=== PATIENT | female | born 1950 | race Caucasian/White ===

== ENCOUNTER 2020-06-06 11:15 | Emergency (ER) | payer MEDICARE, OTHER, SELFPAY ==
[2020-06-06 11:25] VITALS: BP 142/92; PULSE 109; RESP 22; TEMP 36.4; O2SAT 100
[2020-06-06 11:29] VITALS: PULSE 109
--- NOTE | 2020-06-06 11:31 | ECG_ITS ---
Measurements Intervals [place] Rate: 108 P: 21 RI: 154 QRS: 12 QRSD: 81 T: 55 QT: 344 QTc: 463 Interpretive Statements SINUS TACHYCARDIA MINIMAL Q WAVES- INFERIOR LEADS NONSPECIFIC ST & T-WAVE ABNORMALITY- HIGH LATERAL LEADS BASELINE WANDER- I, II, III, V4-V5 ABNORMAL ECG Electronically Signed On 06-06-2020 15:54:04 CDT by Linden Cheung D.O.
--- NOTE | 2020-06-06 11:33 | ED.CHESTPAIN ---
HPI - Chest Pain General Chief Complaint: Chest Pain Stated Complaint: severe sob and cp Time Seen by Provider: 06/06/20 11:18 History of Present Illness HPI narrative: 70 yo female w/ h/o CHF, aortic stenosis presents for CP. Chest pain and SOB for the past 4 days. Worse this morning. SHarp. Worse with breathing. Associated with nonproductive cough and chills. SHe reports that she had similar symptoms in the past when she had pneumonia Related Data Home Medications Medication Instructions Recorded Confirmed Ozempic 06/06/20 insulin glargine [Lantus Solostar SUBCUT 06/06/20 06/06/20 U-100 Insulin] insulin lispro [Humalog KwikPen unit SUBCUT 06/06/20 Insulin] methotrexate sodium (PF) 06/06/20 metoprolol succinate PO 06/06/20 rosuvastatin mg 06/06/20 Allergies Allergy/AdvReac Type Severity Reaction Status Date / Time No Known Allergies Allergy Unverified 06/06/20 11:30 Review of Systems Review of Systems: All systems reviewed & are unremarkable except as noted in HPI and below Constitutional: Constitutional: Reports chills and Denies fever(s) Cardiovascular: Cardiovascular: Reports chest pain and Denies radiating jaw, neck or arm pain Respiratory: Respiratory: Reports cough and Reports dyspnea Gastrointestinal: Gastrointestinal: Reports nausea and Denies vomiting Neurologic: Reports dizziness and Reports weakness PMFSH Past Medical History Medical History (Updated 06/06/20 @ 12:39 by Austin Galvan MD) Aortic stenosis CHF exacerbation Social History Social History (Updated 06/06/20 @ 11:38 by Austin Galvan MD) Smoking status: Never smoker Living arrangements: with family Exam Const: General: no acute distress and alert Orientation/consciousness: patient oriented x3 HENMT: Head: normal to inspection Chest: Chest palpation & inspection: tenderness rib (left lower costal margin) Resp: Effort & Inspection: tachypneic Auscultation: clear to auscultation bilaterally Cardio: Rate: tachycardic Rhythm: regular rhythm GI: GI Palp: Yes Soft to palpation and No Tenderness to palpation present (GI) Skin: General skin exam: normal color Neuro: General: patient oriented x3, moves all extremities and no focal motor deficits Speech: normal speech Extrem: General: normal to inspection and no edema Psych: Affect: Anxious affect present Course Vital Signs Vital signs: Vital Signs Temperature 36.4 C 06/06/20 11:25 Pulse Rate 109 H 06/06/20 11:25 Respiratory Rate 22 H 06/06/20 11:25 Blood Pressure 142/92 H 06/06/20 11:25 Pulse Oximetry 100 06/06/20 11:25 Temperature 36.4 C 06/06/20 11:25 Pulse Rate 109 H 06/06/20 11:29 Respiratory Rate 22 H 06/06/20 11:25 Blood Pressure 142/92 H 06/06/20 11:25 Pulse Oximetry 100 06/06/20 11:25 MDM - Chest Pain MDM Narrative Medical decision making narrative: Labs largely reassuring. She does have mixed respiratory alkalosis and metabolic acidosis. The acidosis is mild. For the most part she seems to be hyperventilating. She is now refusinga chest x-ray and asking to signout AMA so that she can be go to [place]. Differential Diagnosis Differential diagnosis: Likely atypical chest pain, st elevation myocardial infarction and other (pneumonia, anxiety, dehydration) Medical Records Data Attestation: I reviewed the patient's medical records. Lab Data Attestation: I reviewed the patient's lab results. Result diagrams: 06/06/20 11:35 06/06/20 11:35 Labs: Lab Results 06/06/20 06/06/20 06/06/20 Range/Units 11:35 11:35 11:35 WBC 4.3 L (4.5-10.0) K/mm3 RBC 4.66 (4.2-5.4) M/mm3 Hgb 14.4 (12.0-15.0) g/dL Hct 41.5 (37.0-47.0) % MCV 89.1 (80-100) fl MCH 30.9 (26-34) pg MCHC 34.7 (32-36) g/dl RDW 14.6 H (11.5-14.5) % Plt Count 197 (150-375) k/mm3 MPV 10.2 (7.4-10.4) fl Immature Gran % (Auto) 0.5 (0-0.5) % Neut % (A
[2020-06-06 11:42] LABS: Basophils Percent Auto 0.2 % (0.2-1.2); Hematocrit 41.5 % (37.0-47.0); Hemoglobin 14.4 g/dL (12.0-15.0); Immature Granulocyte Absolute 0.02 K/mm3 (0.00-0.031); Immature Granulocyte Percent A 0.5 % (0-0.5); Lymphocytes Percent Auto 46.2 % (18.3-44.2); Mean Corpuscular HGB Conc 34.7 g/dl (32-36); Mean Corpuscular Hemoglobin 30.9 pg (26-34); Mean Corpuscular Volume 89.1 fl (80-100); Mean Platelet Volume 10.2 fl (7.4-10.4); Monocytes Absolute Auto 0.7 K/mm3 (0.1-0.6); Monocytes Percent Auto 16.4 % (2.6-8.5); Neutrophils Absolute Auto 1.6 K/mm3 (1.3-6.7); Neutrophils Percent Auto 36.7 % (45.5-73.1); Platelet Count Result 197 k/mm3 (150-375); Red Blood Count 4.66 M/mm3 (4.2-5.4); Red Cell Distribution Width 14.6 % (11.5-14.5); White Blood Count 4.3 K/mm3 (4.5-10.0)
[2020-06-06] MEDS: SODIUM CHLORIDE 0.9% IV 500 ML 999 ML IV CONT (11:53)
[2020-06-06 11:54] LABS: Anion Gap 10 mmol/L (8-16); Blood Urea Nitrogen 14 mg/dL (7-17); Carbon Dioxide 26 mmol/L (22-30); Chloride 101 mmol/L (98-107); Estimated Glomerular Filt Rate > 60; Glucose 119 mg/dL (65-105); Potassium 3.4 mmol/L (3.4-5.0); Sodium 137 mmol/L (137-145)
[2020-06-06 11:57] LABS: Prothrombin Time 12.8 Seconds (11.1-14.7)
[2020-06-06 11:58] LABS: Partial Thromboplastin Time 28.4 SECONDS (22.3-36.8)
[2020-06-06 12:06] LABS: NT Pro B Type Natriuretic Pept 112 PG/ML (5-100); Troponin I < 0.012 ng/mL (0.000-0.034)
[2020-06-06 12:09] LABS: Alveolar/Arterial O2 Gradient 38.6 mmHg; Base Excess ABG -1.7 mEq/l (+/-2.0); Fractional Inspired Oxygen 21 %; HCO3 ABG 17.7 mEq/l (22.0-26.0); Oxygen Content ABG 18.2 %vol (16.0-22.0); PO2 ABG 88.4 mmHg (80.0-100.0); PO2 FiO2 Ratio Arterial Blood 4.21 %; Total Hemoglobin 13.4 g/dL (12.0-18.0)
[2020-06-06 12:10] LABS: Device ROOM AIR; Modified Allen's Test Pass; Site Drawn RIGHT RADIAL; pH ABG 7.586 (7.350-7.450)
--- NOTE | 2020-06-09 09:38 | PC.NURSE ---
LATE ENTRY This PT had 500ML of NS that was completed at 12:00 on 06/07/20
== END 2020-06-06 12:44 | disposition left against medical advice (07) ==
PROVIDERS: Emergency Provider Emergency Medicine
DX: R07.89 Other chest pain (principal); I50.9 Heart failure, unspecified; I35.0 Nonrheumatic aortic (valve) stenosis; Z79.4 Long term (current) use of insulin; R94.31 Abnormal electrocardiogram [ECG] [EKG]; R00.0 Tachycardia, unspecified
CPT/HCPCS: 36415; 36600; 80048; 82805; 83880; 84484; 85025; 85610; 85730; 93005; 99284; J7040

== ENCOUNTER 2022-05-13 09:24 | Emergency (ER) | payer MEDICARE, OTHER, SELFPAY ==
[2022-05-13 09:39] VITALS: BP 132/69; PULSE 78; RESP 18; TEMP 36; O2SAT 100
--- NOTE | 2022-05-13 09:48 | ED.EYEPROB ---
HPI - Eye Problem General Chief complaint: Eye Problems Stated complaint: Right Eye Irritation Time Seen by Provider: 05/13/22 10:06 Source: patient and RN notes reviewed Mode of arrival: ambulatory Limitations: no limitations History of Present Illness HPI Narrative: 72-year-old female presents with concern for right eye redness, irritation, itchiness, copious drainage. Reports her eye was crusted shut when she woke up this morning. She reports slightly blurry vision in the eye. She reports symptoms started after neighbors were burning leaves. chief complaint: eye redness Related Data Home Medications Medication Instructions Recorded Confirmed insulin glargine 100 unit/mL (3 See Rx Instructions .Route .COMPLEX 06/06/20 05/13/22 mL) subcutaneous pen (Lantus Solostar U-100 Insulin) insulin lispro 100 unit/mL See Rx Instructions .Route .COMPLEX 06/06/20 05/13/22 subcutaneous pen (Humalog KwikPen (U-100) Insulin) metoprolol succinate 25 mg 25 mg PO DAILY 06/06/20 05/13/22 tablet,extended release 24 hr rosuvastatin 20 mg tablet 20 mg PO DAILY 06/06/20 05/13/22 clopidogrel 75 mg tablet (Plavix) 75 mg PO DAILY 05/13/22 05/13/22 prednisone 5 mg tablet 5 mg PO DAILY 05/13/22 05/13/22 semaglutide 0.25 mg or 0.5 mg (2 0.25 mg subcut WEEKLY 05/13/22 05/13/22 mg/1.5 mL) subcutaneous pen injector (Ozempic) Allergies Allergy/AdvReac Type Severity Reaction Status Date / Time metformin AdvReac Intermediate Jittery Verified 05/13/22 10:08 Review of Systems Review of Systems: CONSTITUTIONAL: Denies malaise, chills, sweats, or fever. EYES: Denies visual changes. Reports right eye redness, irritation, discharge. ENT: Denies rhinorrhea, congestion, sinus pain, otalgia or sore throat. SKIN: Denies rash or itching. NEUROLOGIC: Denies numbness, weakness, or headache. PSYCHIATRIC: Denies anxiety or depression. All systems reviewed & are unremarkable except as noted in HPI and below PMFSH Past Medical History Medical History (Updated 05/13/22 @ 10:11 by Chastity Kathleen NP) Aortic stenosis CHF exacerbation Social History Social History (Updated 06/06/20 @ 11:38 by Austin Galvan MD) Smoking status: Never smoker Comments At time of signature, agree with nursing past medical, surgical, social and family history. There is no relevant family history pertinent to the presenting complaint Exam Narrative: GENERAL: Well-appearing, well-nourished, and in no acute distress. HEAD: Normocephalic, atraumatic. EYES: PERRLA, left conjunctivae and sclera clear, and EOMI. No nystagmus. Right sclera and conjunctivae injected. No foreign body visible. Upper and lower eyelid unremarkable, no periorbital edema noted ENT: Nares clear, turbinates pink, no rhinorrhea or epistaxis. Mucous membranes moist. TM pearly vora with sharp light reflex bilaterally; no tragal tenderness. NECK: Supple. CHEST: No respiratory distress. Speaks in full sentences. HEART: Regular rate and rhythm. SKIN: Warm, dry, no visible rash. NEURO: Alert and oriented x3. PSYCH: Normal mood and affect Course Course Emergency Course: Patient is aware of diagnosis, understands and agrees to treatment plan. Anticipatory guidance given. Patient agrees to follow-up as directed and is aware of reasons to seek care at the emergency department. Portions of this record may have been created with voice recognition software Level of Care: Express Care Visit Vital Signs Vital signs: Vital Signs Temperature 96.8 F L 05/13/22 09:39 Pulse Rate 78 05/13/22 09:39 Respiratory Rate 18 05/13/22 09:39 Blood Pressure 132/69 05/13/22 09:39 Pulse Oximetry 100 05/13/22 09:39 Oxygen Delivery Room Air 05/13/22 09:39 Temperature 96.8 F L 05/13/22 09:39 Pulse Rate 78 05/13/22 09:39 Respiratory Rate 18 05/13/22 09:39 Blood Pressure 132/69 05/13/22 09:39 Pulse Oximetry 100 05/13/22 09:39 Oxygen Delivery Room Air 05/13/22 09:
== END 2022-05-13 10:17 | disposition home or self-care (01) ==
PROVIDERS: Emergency Provider Nurse Practitioner
DX: H10.9 Unspecified conjunctivitis (principal); I35.0 Nonrheumatic aortic (valve) stenosis; I50.9 Heart failure, unspecified; E78.00 Pure hypercholesterolemia, unspecified; E11.9 Type 2 diabetes mellitus without complications; Z86.73 Personal history of transient ischemic attack (TIA), and cerebral infarction without residual deficits; Z79.4 Long term (current) use of insulin
CPT/HCPCS: 99213; G0463

== ENCOUNTER 2022-08-07 18:21 | Emergency (ER) | payer MEDICARE, OTHER, SELFPAY ==
[2022-08-07 18:30] VITALS: BP 170/60; PULSE 85; RESP 20; TEMP 35.9; O2SAT 100
--- NOTE | 2022-08-07 18:35 | ED.URI ---
HPI - URI/Sore Throat General Chief Complaint: Upper Respiratory Infection Stated Complaint: uri Time Seen by Provider: 08/07/22 18:23 Source: patient Mode of arrival: ambulatory Limitations: no limitations History of Present Illness HPI Narrative: Ms. Rees is a 72-year-old female patient presenting to clinic today with complaints of fatigue, sore throat, cough, ear pain, and nasal congestion x3 days. She reports that she was exposed to her grandson who tested positive for influenza a last week. She denies any fever or chills. MD elicited complaint: sore throat and nasal congestion Related Data Home Medications Medication Instructions Recorded Confirmed insulin glargine 100 unit/mL (3 See Rx Instructions .Route .COMPLEX 06/06/20 08/07/22 mL) subcutaneous pen (Lantus Solostar U-100 Insulin) insulin lispro 100 unit/mL See Rx Instructions .Route .COMPLEX 06/06/20 08/07/22 subcutaneous pen (Humalog KwikPen (U-100) Insulin) metoprolol succinate 25 mg 25 mg PO DAILY 06/06/20 08/07/22 tablet,extended release 24 hr rosuvastatin 20 mg tablet 20 mg PO DAILY 06/06/20 08/07/22 clopidogrel 75 mg tablet (Plavix) 75 mg PO DAILY 05/13/22 08/07/22 semaglutide 0.25 mg or 0.5 mg (2 0.25 mg subcut WEEKLY 05/13/22 08/07/22 mg/1.5 mL) subcutaneous pen injector (Ozempic) Allergies Allergy/AdvReac Type Severity Reaction Status Date / Time metformin AdvReac Intermediate Jittery Verified 08/07/22 18:25 Review of Systems Review of Systems: Pertinent positives per HPI. Patient denies any fever, chills, rash, headache, visual changes, dizziness, shortness of breath, chest pain, palpitations, nausea, vomiting, diarrhea, constipation, abdominal pain, or any urinary issues. [facility] Past Medical History Medical History Aortic stenosis CHF exacerbation Social History Social History Smoking status: Never smoker Comments At the time of my signature, I reviewed and agree with the nursing past medical, surgical, social, and family history. There is no relevant family history pertinent to the patient complaint. Exam Narrative: General: Well-developed, well nourished, in no apparent distress Head: Normocephalic, atraumatic Eyes: Pupils equally round and reactive to light bilaterally, EOM intact, sclera and conjunctive clear, no discharge, lids normal Ears: TMs intact and clear, ear canals clear, no drainage, grossly hearing normal. Nose: Nares patent, clear nasal discharge, moderate inflammation, no sinus tenderness. Mouth: Oral pharynx without lesions or masses, good dentition, MMM. oropharynx red, postnasal drip Neck: Supple, trachea midline, mild enlargement of anterior or posterior cervical nodes, no thyroid masses or goiter palpable. Cardio: Regular rate and rhythm, s1 and s2 normal, no murmur appreciated. Resp: Clear to auscultation bilaterally, no rhonchi, rales, wheezing or rubs Course Course Emergency Course: Portions of this record may have been created with voice recognition software. Level of Care: Express Care Visit Vital Signs Vital signs: Vital Signs Temperature 35.9 C L 08/07/22 18:30 Pulse Rate 85 08/07/22 18:30 Respiratory Rate 20 08/07/22 18:30 Blood Pressure 170/60 H 08/07/22 18:30 Pulse Oximetry 100 08/07/22 18:30 Oxygen Delivery Room Air 08/07/22 18:30 Temperature 35.9 C L 08/07/22 18:30 Pulse Rate 85 08/07/22 18:30 Respiratory Rate 20 08/07/22 18:30 Blood Pressure 170/60 H 08/07/22 18:30 Pulse Oximetry 100 08/07/22 18:30 Oxygen Delivery Room Air 08/07/22 18:30 Vital signs reviewed MDM - URI/Sore Throat MDM Narrative Medical decision making narrative: At the time of visit patient is resting comfortably on exam table. COVID and influenza testing were negative in the clinic today. I suspect the patient has URI/pharyn
== END 2022-08-07 19:10 | disposition home or self-care (01) ==
PROVIDERS: Emergency Provider Nurse Practitioner Family
DX: R09.82 Postnasal drip (principal); J06.9 Acute upper respiratory infection, unspecified; J02.9 Acute pharyngitis, unspecified; Z20.822 Contact with and (suspected) exposure to COVID-19; I35.0 Nonrheumatic aortic (valve) stenosis; I50.9 Heart failure, unspecified
CPT/HCPCS: 87081; 87426; 87804; 99213; C9803; G0463

== ENCOUNTER 2022-08-10 11:18 | Emergency (ER) | payer MEDICARE, OTHER, SELFPAY ==
--- NOTE | ~2022-08-10 | XR_ITS ---
EXAMINATION: XR chest 2V DATE: 08/10/2022 12:21 INDICATION: One week of chest pain and cough TECHNIQUE: PA and lateral views of the chest were obtained. COMPARISON: Chest radiograph dated 04/04/2016 FINDINGS: Lungs are now clear with resolution of prior opacities in the right middle lobe. No pulmonary edema, pleural effusion or pneumothorax. The cardiomediastinal silhouette is normal. Aortic valve repair. Po st cystectomy clips in right upper quadrant. Severe thoracic spondylosis. Left rotator cuff arthropat hy. Right reverse total shoulder arthroplasty. IMPRESSION: 1. No acute cardiopulmonary disease. Reviewed, dictated and finalized at location [facility]
[2022-08-10 11:30] VITALS: BP 124/58; PULSE 96; RESP 20; TEMP 36.4; O2SAT 99
--- NOTE | 2022-08-10 12:05 | ED.URI ---
HPI - URI/Sore Throat General Stated Complaint: Cough,Shortness of Breath,Headache Time Seen by Provider: 08/10/22 12:05 Source: patient and RN notes reviewed Mode of arrival: ambulatory Limitations: no limitations History of Present Illness HPI Narrative: 72-year-old female presents with concern for ongoing cough. She reports she was seen with 3 days ago and given prednisone which has not improved her symptoms, it got much patient's concern for pneumonia. She reports chest pain with coughing. She denies fever MD elicited complaint: cough Related Data Home Medications Medication Instructions Recorded Confirmed insulin glargine 100 unit/mL (3 See Rx Instructions .Route .COMPLEX 06/06/20 08/07/22 mL) subcutaneous pen (Lantus Solostar U-100 Insulin) insulin lispro 100 unit/mL See Rx Instructions .Route .COMPLEX 06/06/20 08/07/22 subcutaneous pen (Humalog KwikPen (U-100) Insulin) metoprolol succinate 25 mg 25 mg PO DAILY 06/06/20 08/07/22 tablet,extended release 24 hr rosuvastatin 20 mg tablet 20 mg PO DAILY 06/06/20 08/07/22 clopidogrel 75 mg tablet (Plavix) 75 mg PO DAILY 05/13/22 08/07/22 semaglutide 0.25 mg or 0.5 mg (2 0.25 mg subcut WEEKLY 05/13/22 08/07/22 mg/1.5 mL) subcutaneous pen injector (Ozempic) Allergies Allergy/AdvReac Type Severity Reaction Status Date / Time aspartame Allergy Migraine Verified 08/10/22 12:12 metformin AdvReac Intermediate Jittery Verified 08/07/22 18:25 Review of Systems Review of Systems: CONSTITUTIONAL: Reports malaise. Denies chills, sweats, or fever. EYES: Denies visual changes, redness, or discharge. ENT: Reports rhinorrhea, congestion. Denies sinus pain, otalgia and sore throat. CARDIOVASCULAR: Denies chest pain, palpitations, or edema. RESPIRATORY: Reports persistent cough. Denies dyspnea. MUSCULOSKELETAL: Denies myalgia. NEUROLOGIC: Denies headache. All systems reviewed & are unremarkable except as noted in HPI and below PMFSH Past Medical History Medical History Aortic stenosis CHF exacerbation Social History Social History Smoking status: Never smoker Comments At time of signature, agree with nursing past medical, surgical, social and family history. There is no relevant family history pertinent to the presenting complaint Exam Narrative: GENERAL: Nontoxic appears and in no acute distress. HEAD: Normocephalic EYES: PERRLA, conjunctivae clear ENT: Nares clear, clear discharge. Mucous membranes moist. NECK: Supple. No lymphadenopathy CHEST: Diminished at the bases with rhonchi, otherwise Clear to auscultation. No wheezing, rales, or stridor. No respiratory distress, speaks in full sentences. HEART: Regular rate and rhythm. No murmur heard. SKIN: Warm, dry, no rash. NEURO: Alert and oriented x3. PSYCH: Normal mood and affect Course Course Emergency Course: Patient is aware of diagnosis, understands and agrees to treatment plan. Anticipatory guidance given. Patient agrees to follow-up as directed and is aware of reasons to seek care at the emergency department. Portions of this record may have been created with voice recognition software Level of Care: Express Care Visit Vital Signs Vital signs: Vital Signs Temperature 97.6 F 08/10/22 11:30 Pulse Rate 96 08/10/22 11:30 Respiratory Rate 20 08/10/22 11:30 Blood Pressure 124/58 L 08/10/22 11:30 Pulse Oximetry 99 08/10/22 11:30 Oxygen Delivery Room Air 08/10/22 11:30 Temperature 97.6 F 08/10/22 11:30 Pulse Rate 96 08/10/22 11:30 Respiratory Rate 20 08/10/22 11:30 Blood Pressure 124/58 L 08/10/22 11:30 Pulse Oximetry 99 08/10/22 11:30 Oxygen Delivery Room Air 08/10/22 11:30 Reviewed. MDM - URI/Sore Throat MDM Narrative Medical decision making narrative: Differential diagnosis considered: Farmer virus, strep phar
== END 2022-08-10 12:54 | disposition home or self-care (01) ==
PROVIDERS: Emergency Provider Nurse Practitioner
DX: J06.9 Acute upper respiratory infection, unspecified (principal); I50.9 Heart failure, unspecified
CPT/HCPCS: 71046; 99213; G0463